=== PATIENT | male | born 1995 | race Caucasian/White ===

== ENCOUNTER 2016-11-15 19:09 | Emergency (ER) | payer OTHER ==
[~2016-11-15] VITALS: Ht 160 cm; Wt 88.5 kg
[2016-11-15 19:20] VITALS: BP_SYST 147
[2016-11-15] MEDS ORDERED: KETOROLAC TROMETHAMINE 60 MG/2 ML VIAL IM ONE (20:30)
[2016-11-15 20:45] VITALS: BP_SYST 136
== END 2016-11-15 20:45 | disposition home or self-care (01) ==
LOC: SED 19:09
DX: B34.9 Viral infection, unspecified (principal); R03.0 Elevated blood-pressure reading, without diagnosis of hypertension
CPT/HCPCS: 96372; 99283; J1885